=== PATIENT | male | born 1990 | race Caucasian/White ===

== ENCOUNTER 2019-02-15 13:55 | Day surgery (SDC) | payer BC ==
[~2019-02-15] VITALS: Ht 172.7 cm; Wt 97.8 kg
[2019-02-15 14:35] VITALS: BP 124/79
== END 2019-02-15 18:25 | disposition home or self-care (01) ==
LOC: OR 13:55
PROVIDERS: ATTEND Orthopaedic Surgery
DX: S43.432A Superior glenoid labrum lesion of left shoulder, initial encounter (principal); M65.812 Other synovitis and tenosynovitis, left shoulder; M75.42 Impingement syndrome of left shoulder; M75.52 Bursitis of left shoulder; Z72.89 Other problems related to lifestyle; Z79.1 Long term (current) use of non-steroidal anti-inflammatories (NSAID); Z79.899 Other long term (current) drug therapy; Z88.0 Allergy status to penicillin; Z88.1 Allergy status to other antibiotic agents; Z98.890 Other specified postprocedural states; Z82.61 Family history of arthritis; X50.0XXA Overexertion from strenuous movement or load, initial encounter; Y93.89 Activity, other specified; Y92.89 Other specified places as the place of occurrence of the external cause; Y99.8 Other external cause status
CPT/HCPCS: 23430; 29823; 29826; 64415; C1713; J0330; J0690; J1100; J2250; J2405; J2704; J2710; J3010; J3490